=== PATIENT | female | born 1990 | race Native Hawaiian/Other Pacific Islander ===

== ENCOUNTER 2017-08-15 08:40 | Outpatient (CLI) | payer OTHER | END 2017-08-15 19:17 | disposition home or self-care (01) | LOC: MAMMO 08:40 | DX: N63.21 Unspecified lump in the left breast, upper outer quadrant (principal) ==

== ENCOUNTER 2018-02-12 09:44 | Outpatient (CLI) | payer OTHER | END 2018-02-12 19:07 | disposition home or self-care (01) | LOC: US 09:44 | DX: R92.2 Inconclusive mammogram (principal) ==